=== PATIENT | female | born 1955 | race African-American/Black ===

== ENCOUNTER 2019-01-01 06:55 | Emergency (ER) | payer MEDICARE, MEDICAID ==
[~2019-01-01] VITALS: Ht 177.8 cm; Wt 88.0 kg
[2019-01-01] MEDS ORDERED: ONDANSETRON 4MG ODT PO ONE (10:30)
[2019-01-01] MEDS ORDERED: HYDROCODONE/ACETAMINOPHEN 5/325MG TABLET PO ONE (10:30)
[2019-01-01 10:45] VITALS: BP 153/103
== END 2019-01-01 12:19 | disposition home or self-care (01) ==
LOC: ER 06:55
DX: M25.562 Pain in left knee (principal); M25.561 Pain in right knee; G89.29 Other chronic pain; I10 Essential (primary) hypertension; M19.90 Unspecified osteoarthritis, unspecified site; I48.91 Unspecified atrial fibrillation; Z95.0 Presence of cardiac pacemaker; Z79.01 Long term (current) use of anticoagulants
CPT/HCPCS: 72170; 73562; 99283; Q0162

== ENCOUNTER 2019-02-03 03:39 | Inpatient (IN) | payer MEDICARE, MEDICAID ==
[~2019-02-03] VITALS: Ht 175.3 cm; Wt 91.2 kg
[2019-02-03] VITALS (10 sets, daily range): BP systolic 124–158; BP diastolic 63–104
[2019-02-03] MEDS ORDERED: ONDANSETRON HCL 4MG/2ML INJ IV STA (04:04)
[2019-02-03] MEDS ORDERED: MORPHINE SULFATE 4 MG/ML CPJ (NOT FOR IM USE) IV STA (04:04)
[2019-02-03 04:24] LABS: BASOPHILS % 0.6 % (0.0-2.0); EOSINOPHILS % 3.8 % (0.0-5.0); HEMATOCRIT. 29.4 % (36.0-48.0); HEMOGLOBIN. 9.7 g/dL (12.0-16.0); LYMPHOCYTES % 9.8 % (20.0-50.0); MEAN CORPUSCULAR HEMOGLOBIN 28.7 pg (28.0-32.0); MEAN CORPUSCULAR VOLUME 87.1 fL (81.0-99.0); MEAN PLATELET VOLUME 7.3 fl (7.4-10.4); MONOCYTES % 7.3 % (2.0-8.0); NEUTROPHILS % 78.5 % (40.0-76.0); PLATELET 320 x1000/uL (130-400); RED BLOOD CELL COUNT 3.38 mill/uL (4.2-5.4)
[2019-02-03 04:26] LABS: CHLORIDE 102 mEq/L (98-107)
[2019-02-03 04:31] LABS: D-DIMER 1.4 mg/L FEU (<0.50); INR 1.2; PROTHROMBIN TIME 12.7 sec (9.6-11.0)
[2019-02-03] MEDS ORDERED: ENOXAPARIN 100MG/ML SYR SUBCUT ONE (05:00)
[2019-02-03] MEDS ORDERED: ACETAMINOPHEN 325MG TABLET PO PRN (07:30)
[2019-02-03] MEDS ORDERED: CLONIDINE 0.1MG TABLET PO PRN (07:30)
[2019-02-03] MEDS ORDERED: IPRATROPIUM/ALBUTEROL 0.5-3(2.5)MG/3ML NEB INH PRN (07:30)
[2019-02-03] MEDS ORDERED: ONDANSETRON HCL 4MG/2ML INJ IV PRN (07:30)
[2019-02-03] MEDS ORDERED: LORAZEPAM 0.5MG TABLET PO PRN (07:30)
[2019-02-03] MEDS ORDERED: DOCUSATE SODIUM 100MG CAPSULE PO PRN (07:30)
[2019-02-03] MEDS: ASPIRIN 81MG EC TABLET PO SCH (08:35)
[2019-02-03] MEDS: HYDROCODONE/ACETAMINOPHEN 5/325MG TABLET PO PRN ×2 (08:35→20:40)
[2019-02-03 10:40] LABS: BASOPHILS % 0.7 % (0.0-2.0); EOSINOPHILS % 5.4 % (0.0-5.0); HEMOGLOBIN. 9.2 g/dL (12.0-16.0); LYMPHOCYTES % 9.9 % (20.0-50.0); MEAN CORPUSCULAR HEMOGLOBIN 27.8 pg (28.0-32.0); MEAN CORPUSCULAR VOLUME 87.4 fL (81.0-99.0); MEAN PLATELET VOLUME 7.6 fl (7.4-10.4); MONOCYTES % 7.9 % (2.0-8.0); NEUTROPHILS % 76.1 % (40.0-76.0); PLATELET 330 x1000/uL (130-400); RED BLOOD CELL COUNT 3.32 mill/uL (4.2-5.4); RED CELL DISTRIBUTION WIDTH 17.1 % (11.6-14.6)
[2019-02-03 10:41] LABS: CHLORIDE 102 mEq/L (98-107)
[2019-02-03 10:48] LABS: LDL CHOLESTEROL 48 mg/dL (5-100)
[2019-02-03 10:49] LABS: HDL CHOLESTEROL 24 mg/dL (40-59); TOTAL IRON BINDING CAPACITY 167 ug/dL (250-450)
[2019-02-03 10:52] LABS: CREATINE KINASE MB FRACTION 56.4 ng/mL (0.5-3.6)
[2019-02-03 11:04] LABS: CREATINE KINASE 3938 IU/L (26-192)
[2019-02-03] MEDS ORDERED: FUROSEMIDE 40MG/4ML VIAL IVP NR (12:30)
[2019-02-03] MEDS ORDERED: POTASSIUM CHLORIDE 20MEQ TABLET SR PO NR ×2 (12:30→19:00)
[2019-02-03] MEDS: MORPHINE SULFATE 2 MG/ML CPJ (NOT FOR IM USE) IV PRN ×3 (12:54→23:16)
[2019-02-03 13:01] LABS: *BARBITURATES SCREEN URINE NEGATIVE (NEGATIVE); *BENZODIAZEPINES SCREEN URINE NEGATIVE (NEGATIVE); *COCAINE SCREEN URINE NEGATIVE (NEGATIVE); METHADONE URINE SCREEN NEGATIVE (NEGATIVE)
[2019-02-03 13:02] LABS: *AMPHETAMINES SCREEN URINE NEGATIVE (NEGATIVE); CANNABINOID URINE SCREEN NEGATIVE (NEGATIVE); OPIATES URINE SCREEN PRESUMTIVE POSITIVE (NEGATIVE); PHENCYCLIDINE URINE SCREEN NEGATIVE (NEGATIVE)
[2019-02-03] MEDS ORDERED: MAGNESIUM 4 G PREMIX 100 ML IV NR (14:30)
[2019-02-03] MEDS ORDERED: IOHEXOL-350 100 ML BOTTLE ONE (14:54)
[2019-02-03] MEDS: DILTIAZEM HCL 60MG TABLET PO SCH (18:14)
[2019-02-03 18:23] LABS: HEPATITIS B SURFACE ANTIGEN NEGATIVE
[2019-02-03 18:53] LABS: HEPATITIS A AB IGM NEGATIVE (NEGATIVE)
[2019-02-03 20:26] LABS: CREATINE KINASE MB FRACTION 48.2 ng/mL (0.5-3.6)
[2019-02-03] MEDS: ENOXAPARIN 80MG/0.8ML SYR SUBCUT SCH (20:32)
[2019-02-04] VITALS (11 sets, daily range): BP systolic 109–147; BP diastolic 62–91
[2019-02-04] MEDS: DILTIAZEM HCL 60MG TABLET PO SCH ×4 (00:04→17:25)
[2019-02-04] MEDS: MORPHINE SULFATE 2 MG/ML CPJ (NOT FOR IM USE) IV PRN ×2 (03:24→20:56)
[2019-02-04] MEDS: HYDROCODONE/ACETAMINOPHEN 5/325MG TABLET PO PRN ×2 (06:12→13:04)
[2019-02-04 07:17] LABS: BASOPHILS % 0.7 % (0.0-2.0); EOSINOPHILS % 4.6 % (0.0-5.0); HEMATOCRIT. 29.6 % (36.0-48.0); HEMOGLOBIN. 9.4 g/dL (12.0-16.0); LYMPHOCYTES % 8.3 % (20.0-50.0); MEAN CORPUSCULAR HEMOGLOBIN 27.8 pg (28.0-32.0); MEAN CORPUSCULAR VOLUME 87.4 fL (81.0-99.0); MEAN PLATELET VOLUME 7.6 fl (7.4-10.4); MONOCYTES % 8.4 % (2.0-8.0); PLATELET 350 x1000/uL (130-400); RED BLOOD CELL COUNT 3.38 mill/uL (4.2-5.4); RED CELL DISTRIBUTION WIDTH 17.2 % (11.6-14.6)
[2019-02-04 07:35] LABS: CHLORIDE 102 mEq/L (98-107)
[2019-02-04] MEDS: ASPIRIN 81MG EC TABLET PO SCH ×2 (08:20→08:23)
[2019-02-04] MEDS: ENOXAPARIN 80MG/0.8ML SYR SUBCUT SCH ×2 (08:20→21:15)
[2019-02-04] MEDS ORDERED: REGADENOSON 0.4 MG/5 ML IV NR (11:30)
[2019-02-04] MEDS ORDERED: REGADENOSON 0.4 MG/5 ML IV ONE (12:15)
[2019-02-05] VITALS (11 sets, daily range): BP systolic 108–147; BP diastolic 64–84
[2019-02-05] MEDS: DILTIAZEM HCL 60MG TABLET PO SCH ×4 (00:26→21:51)
[2019-02-05] MEDS: MORPHINE SULFATE 2 MG/ML CPJ (NOT FOR IM USE) IV PRN ×3 (00:29→16:37)
[2019-02-05] MEDS: HYDROCODONE/ACETAMINOPHEN 5/325MG TABLET PO PRN ×2 (03:55→13:21)
[2019-02-05 08:08] LABS: EOSINOPHILS % 3.9 % (0.0-5.0); HEMATOCRIT. 30.7 % (36.0-48.0); HEMOGLOBIN. 9.9 g/dL (12.0-16.0); LYMPHOCYTES % 7.3 % (20.0-50.0); MEAN CORPUSCULAR VOLUME 87.2 fL (81.0-99.0); MEAN PLATELET VOLUME 7.9 fl (7.4-10.4); MONOCYTES % 8.1 % (2.0-8.0); NEUTROPHILS % 79.7 % (40.0-76.0); PLATELET 365 x1000/uL (130-400); RED BLOOD CELL COUNT 3.52 mill/uL (4.2-5.4); RED CELL DISTRIBUTION WIDTH 17.1 % (11.6-14.6)
[2019-02-05 08:33] LABS: CHLORIDE 100 mEq/L (98-107)
[2019-02-05] MEDS: FUROSEMIDE 40MG/4ML VIAL IVP SCH ×2 (08:55→16:36)
[2019-02-05] MEDS: ASPIRIN 81MG EC TABLET PO SCH (08:55)
[2019-02-05] MEDS: ENOXAPARIN 80MG/0.8ML SYR SUBCUT SCH ×2 (09:02→21:52)
[2019-02-05] MEDS ORDERED: WARFARIN SODIUM 2.5MG TABLET PO SCH (18:00)
[2019-02-06] VITALS (9 sets, daily range): BP systolic 126–143; BP diastolic 65–87
[2019-02-06] MEDS: MORPHINE SULFATE 2 MG/ML CPJ (NOT FOR IM USE) IV PRN (00:01)
[2019-02-06] MEDS: HYDROCODONE/ACETAMINOPHEN 5/325MG TABLET PO PRN ×2 (03:42→09:13)
[2019-02-06] MEDS: DILTIAZEM HCL 60MG TABLET PO SCH ×2 (05:35→14:41)
[2019-02-06] MEDS: FUROSEMIDE 40MG/4ML VIAL IVP SCH (06:23)
[2019-02-06 06:46] LABS: BASOPHILS % 0.7 % (0.0-2.0); EOSINOPHILS % 5.2 % (0.0-5.0); HEMATOCRIT. 28.4 % (36.0-48.0); HEMOGLOBIN. 9.4 g/dL (12.0-16.0); LYMPHOCYTES % 10.2 % (20.0-50.0); MEAN CORPUSCULAR HEMOGLOBIN 28.7 pg (28.0-32.0); MEAN PLATELET VOLUME 7.9 fl (7.4-10.4); MONOCYTES % 9.5 % (2.0-8.0); NEUTROPHILS % 74.4 % (40.0-76.0); PLATELET 326 x1000/uL (130-400); RED BLOOD CELL COUNT 3.27 mill/uL (4.2-5.4); RED CELL DISTRIBUTION WIDTH 16.8 % (11.6-14.6)
[2019-02-06] MEDS: ASPIRIN 81MG EC TABLET PO SCH (08:58)
[2019-02-06] MEDS: ENOXAPARIN 80MG/0.8ML SYR SUBCUT SCH (10:31)
[2019-02-06] MEDS ORDERED: FUROSEMIDE 40MG TABLET PO SCH (17:15)
== END 2019-02-06 15:22 | disposition home or self-care (01) | DRG 280 ==
LOC: ER 03:39 → 3WST 04:56 → ENRESERV 05:24
PROVIDERS: ADMIT Internal Medicine; ATTEND Internal Medicine
DX: I21.4 Non-ST elevation (NSTEMI) myocardial infarction (principal); I50.43 Acute on chronic combined systolic (congestive) and diastolic (congestive) heart failure; I48.1 Persistent atrial fibrillation; I31.3 Pericardial effusion (noninflammatory); D50.9 Iron deficiency anemia, unspecified; D63.8 Anemia in other chronic diseases classified elsewhere; E83.42 Hypomagnesemia; E87.6 Hypokalemia; I11.0 Hypertensive heart disease with heart failure; I49.5 Sick sinus syndrome; M19.90 Unspecified osteoarthritis, unspecified site; I34.0 Nonrheumatic mitral (valve) insufficiency; I48.2 Chronic atrial fibrillation; R74.0 Nonspecific elevation of levels of transaminase and lactic acid dehydrogenase [LDH]; R79.1 Abnormal coagulation profile; Z79.01 Long term (current) use of anticoagulants; Z95.0 Presence of cardiac pacemaker; Z79.899 Other long term (current) drug therapy; Z91.19 Patient's noncompliance with other medical treatment and regimen
CPT/HCPCS: 36415; 71045; 71275; 76700; 78452; 80048; 80061; 80305; 82550; 82553; 82728; 83036; 83540; 83550; 83605; 83735; 83880; 84443; 84484; 85379; 86705; 86709; 86803; 87340; 93005; 93017; 93306; 93970; 96372; 96374; 96375; 99285; A9500; J1650; J1940; J2270; J2405; J2785; J3475; Q9967

== ENCOUNTER 2019-04-01 05:55 | Inpatient (IN) | payer MEDICARE, MEDICAID ==
[~2019-04-01] VITALS: Ht 177.8 cm; Wt 77.1 kg
[2019-04-01] MEDS ORDERED: ONDANSETRON HCL 4MG/2ML INJ IV STA (06:25)
[2019-04-01] MEDS ORDERED: MORPHINE SULFATE 4 MG/ML CPJ (NOT FOR IM USE) IV STA (06:25)
[2019-04-01] MEDS ORDERED: SODIUM CHLORIDE 0.9% 1,000 ML IV ONE (06:25)
[2019-04-01 06:50] LABS: HEMATOCRIT. 29.1 % (36.0-48.0); HEMOGLOBIN. 9.4 g/dL (12.0-16.0); MEAN CORPUSCULAR HEMOGLOBIN 27.9 pg (28.0-32.0); MEAN CORPUSCULAR VOLUME 86.1 fL (81.0-99.0); MEAN PLATELET VOLUME 7.6 fl (7.4-10.4); PLATELET 315 x1000/uL (130-400); RED BLOOD CELL COUNT 3.38 mill/uL (4.2-5.4); RED CELL DISTRIBUTION WIDTH 17.2 % (11.6-14.6)
[2019-04-01 06:55] LABS: CHLORIDE 97 mEq/L (98-107)
[2019-04-01 07:28] LABS: PLATELET ESTIMATE NORMAL
[2019-04-01] MEDS ORDERED: LEVOFLOXACIN 750MG PREMIX 150 ML IV ONE (07:30)
[2019-04-01] MEDS ORDERED: SODIUM CHLORIDE 0.9% 1000ML BAG (SEPSIS BOLUS) IV ONE (07:30)
[2019-04-01] MEDS ORDERED: CLONIDINE 0.1MG TABLET PO ONE (07:45)
[2019-04-01] MEDS ORDERED: POTASSIUM CHLORIDE 20MEQ TABLET SR PO ONE (07:45)
[2019-04-01] MEDS ORDERED: ASPIRIN 81MG TABLET PO ONE (07:45)
[2019-04-01 08:00] VITALS: BP 159/94
[2019-04-01 09:00] VITALS: BP 159/94
[2019-04-01 09:50] LABS: CLARITY URINE CLEAR (CLEAR); COLOR URINE YELLOW (YELLOW); KETONES URINE NEGATIVE (NEGATIVE); LEUKOCYTE ESTERASE URINE NEGATIVE (NEGATIVE); NITRITE URINE NEGATIVE (NEGATIVE); OCCULT BLOOD URINE NEGATIVE (NEGATIVE); PROTEIN URINE NEGATIVE (NEGATIVE); SPECIFIC GRAVITY URINE 1.014 (1.005-1.030); UROBILINOGEN URINE 0.2 E.U./dL (0.2-1.0)
[2019-04-01] MEDS ORDERED: LORAZEPAM 0.5MG TABLET PO PRN (11:30)
[2019-04-01] MEDS ORDERED: ACETAMINOPHEN 325MG TABLET PO PRN (11:30)
[2019-04-01] MEDS ORDERED: IPRATROPIUM/ALBUTEROL 0.5-3(2.5)MG/3ML NEB INH PRN (11:30)
[2019-04-01] MEDS ORDERED: DOCUSATE SODIUM 100MG CAPSULE PO PRN (11:30)
[2019-04-01] MEDS ORDERED: CLONIDINE 0.1MG TABLET PO PRN (11:30)
[2019-04-01 12:00] VITALS: BP 158/85
[2019-04-01 12:34] LABS: CREATINE KINASE MB FRACTION 23.6 ng/mL (0.5-3.6)
[2019-04-01] MEDS: PANTOPRAZOLE 40MG DR TABLET PO SCH (12:41)
[2019-04-01] MEDS: HYDROCODONE/ACETAMINOPHEN 5/325MG TABLET PO PRN ×3 (12:43→22:17)
[2019-04-01 13:29] LABS: *AMPHETAMINES SCREEN URINE NEGATIVE (NEGATIVE); *BARBITURATES SCREEN URINE NEGATIVE (NEGATIVE)
[2019-04-01 13:30] LABS: *BENZODIAZEPINES SCREEN URINE NEGATIVE (NEGATIVE); *COCAINE SCREEN URINE NEGATIVE (NEGATIVE); CANNABINOID URINE SCREEN NEGATIVE (NEGATIVE); METHADONE URINE SCREEN NEGATIVE (NEGATIVE); OPIATES URINE SCREEN NEGATIVE (NEGATIVE); PHENCYCLIDINE URINE SCREEN NEGATIVE (NEGATIVE)
[2019-04-01 13:54] VITALS: BP 158/85
[2019-04-01] MEDS: LOSARTAN POTASSIUM 25 MG TABLET PO SCH (15:00)
[2019-04-01] MEDS: DILTIAZEM HCL 60MG TABLET PO SCH ×2 (15:00→22:17)
[2019-04-01 16:00] VITALS: BP 160/100
[2019-04-01] MEDS: ONDANSETRON HCL 4MG/2ML INJ IV PRN (19:33)
[2019-04-01 20:00] VITALS: BP 130/85
[2019-04-01 20:34] LABS: INR 1.2; PROTHROMBIN TIME 12.4 sec (9.6-11.0)
[2019-04-01] MEDS ORDERED: WARFARIN SODIUM 5MG TABLET PO SCH (21:00)
[2019-04-02] VITALS: BP 156/100
[2019-04-02] MEDS: ONDANSETRON HCL 4MG/2ML INJ IV PRN (00:28)
[2019-04-02 04:00] VITALS: BP 126/60
[2019-04-02] MEDS: HYDROCODONE/ACETAMINOPHEN 5/325MG TABLET PO PRN ×3 (06:00→21:11)
[2019-04-02] MEDS: PANTOPRAZOLE 40MG DR TABLET PO SCH (06:27)
[2019-04-02] MEDS: DILTIAZEM HCL 60MG TABLET PO SCH ×3 (06:28→21:10)
[2019-04-02 07:03] LABS: INR 1.1; PROTHROMBIN TIME 11.7 sec (9.6-11.0)
[2019-04-02 07:18] LABS: HEMATOCRIT. 29.2 % (36.0-48.0); HEMOGLOBIN. 9.6 g/dL (12.0-16.0); MEAN CORPUSCULAR HEMOGLOBIN 27.9 pg (28.0-32.0); MEAN CORPUSCULAR VOLUME 85.4 fL (81.0-99.0); MEAN PLATELET VOLUME 7.8 fl (7.4-10.4); PLATELET 313 x1000/uL (130-400); RED BLOOD CELL COUNT 3.42 mill/uL (4.2-5.4); RED CELL DISTRIBUTION WIDTH 16.9 % (11.6-14.6)
[2019-04-02 07:21] LABS: CHLORIDE 102 mEq/L (98-107)
[2019-04-02 07:37] LABS: PHOSPHORUS 3.8 mg/dL (2.5-4.9)
[2019-04-02 08:00] VITALS: BP 139/68
[2019-04-02] MEDS: LOSARTAN POTASSIUM 25 MG TABLET PO SCH (08:40)
[2019-04-02] MEDS ORDERED: ONDANSETRON HCL 4MG/2ML INJ IV PRN (09:00)
[2019-04-02 12:00] VITALS: BP 126/67
[2019-04-02] MEDS: ENOXAPARIN 80MG/0.8ML SYR SUBCUT SCH ×2 (12:27→21:11)
[2019-04-02] MEDS ORDERED: POTASSIUM CHLORIDE 20MEQ TABLET SR PO NR (12:30)
[2019-04-02 14:05] LABS: PLATELET ESTIMATE NORMAL
[2019-04-02 15:51] VITALS: BP 151/79
[2019-04-02 16:55] LABS: CREATINE KINASE 1634 IU/L (26-192)
[2019-04-02] MEDS ORDERED: WARFARIN SODIUM 7.5MG TABLET PO NR (18:00)
[2019-04-02 20:00] VITALS: BP 130/80
[2019-04-03] VITALS: BP 120/70
[2019-04-03] MEDS: HYDROCODONE/ACETAMINOPHEN 5/325MG TABLET PO PRN ×2 (01:35→08:08)
[2019-04-03 04:00] VITALS: BP 140/80
[2019-04-03] MEDS: DILTIAZEM HCL 60MG TABLET PO SCH ×2 (05:45→13:50)
[2019-04-03 07:05] LABS: BASOPHILS % 1.1 % (0.0-2.0); EOSINOPHILS % 5.2 % (0.0-5.0); HEMATOCRIT. 31.8 % (36.0-48.0); HEMOGLOBIN. 10.3 g/dL (12.0-16.0); LYMPHOCYTES % 17.9 % (20.0-50.0); MEAN CORPUSCULAR VOLUME 85.9 fL (81.0-99.0); MEAN PLATELET VOLUME 7.9 fl (7.4-10.4); MONOCYTES % 6.9 % (2.0-8.0); NEUTROPHILS % 68.9 % (40.0-76.0); PLATELET 337 x1000/uL (130-400); RED CELL DISTRIBUTION WIDTH 17.2 % (11.6-14.6)
[2019-04-03 07:12] LABS: CHLORIDE 100 mEq/L (98-107)
[2019-04-03 07:21] LABS: INR 1.2
[2019-04-03 07:28] LABS: PHOSPHORUS 3.2 mg/dL (2.5-4.9)
[2019-04-03 07:44] LABS: CREATINE KINASE 1774 IU/L (26-192)
[2019-04-03 07:48] VITALS: BP 142/81
[2019-04-03] MEDS: LOSARTAN POTASSIUM 25 MG TABLET PO SCH (08:08)
[2019-04-03] MEDS: ENOXAPARIN 80MG/0.8ML SYR SUBCUT SCH (08:08)
[2019-04-03] MEDS ORDERED: FAMOTIDINE 20MG TABLET PO SCH (09:00)
[2019-04-03 12:00] VITALS: BP 127/80
[2019-04-03 13:52] VITALS: BP 127/80
[2019-04-03] MEDS ORDERED: WARFARIN SODIUM 7.5MG TABLET PO NR (18:00)
== END 2019-04-03 14:35 | disposition home health service (06) | DRG 683 ==
LOC: ER 05:55 → 5WST 07:40 → EDBEDREQ 08:14 → ENRESERV 08:25
PROVIDERS: ADMIT Internal Medicine; ATTEND Internal Medicine
DX: N17.9 Acute kidney failure, unspecified (principal); E44.1 Mild protein-calorie malnutrition; I31.3 Pericardial effusion (noninflammatory); M62.82 Rhabdomyolysis; I50.22 Chronic systolic (congestive) heart failure; I42.0 Dilated cardiomyopathy; E87.6 Hypokalemia; I11.0 Hypertensive heart disease with heart failure; I48.2 Chronic atrial fibrillation; R10.9 Unspecified abdominal pain; R20.2 Paresthesia of skin; D63.8 Anemia in other chronic diseases classified elsewhere; I08.1 Rheumatic disorders of both mitral and tricuspid valves; R74.0 Nonspecific elevation of levels of transaminase and lactic acid dehydrogenase [LDH]; I49.5 Sick sinus syndrome; M19.90 Unspecified osteoarthritis, unspecified site; Z79.01 Long term (current) use of anticoagulants; I25.2 Old myocardial infarction; Z82.49 Family history of ischemic heart disease and other diseases of the circulatory system; Z95.0 Presence of cardiac pacemaker; Z68.24 Body mass index [BMI] 24.0-24.9, adult
CPT/HCPCS: 36415; 71045; 74176; 80048; 80076; 80305; 81003; 82550; 82553; 83605; 83735; 83880; 84100; 84484; 93005; 93306; 96365; 96375; 99285; J1650; J1956; J2270; J2405; J7030

== ENCOUNTER 2019-05-28 06:21 | Inpatient (IN) | payer MEDICARE, MEDICAID ==
[~2019-05-28] VITALS: Ht 177.8 cm; Wt 93.0 kg
[2019-05-28] MEDS ORDERED: ONDANSETRON HCL 4MG/2ML INJ IV STA (06:40)
[2019-05-28] MEDS ORDERED: MORPHINE SULFATE 4 MG/ML CPJ (NOT FOR IM USE) IV STA (06:40)
[2019-05-28] MEDS ORDERED: SODIUM CHLORIDE 0.9% 1,000 ML IV ONE (06:40)
[2019-05-28 08:22] LABS: BASOPHILS % 0.3 % (0.0-2.0); EOSINOPHILS % 2.8 % (0.0-5.0); HEMATOCRIT. 29.4 % (36.0-48.0); HEMOGLOBIN. 9.3 g/dL (12.0-16.0); LYMPHOCYTES % 15.2 % (20.0-50.0); MEAN CORPUSCULAR HEMOGLOBIN 27.2 pg (28.0-32.0); MEAN CORPUSCULAR VOLUME 85.8 fL (81.0-99.0); MEAN PLATELET VOLUME 7.5 fl (7.4-10.4); MONOCYTES % 9.4 % (2.0-8.0); NEUTROPHILS % 72.3 % (40.0-76.0); PLATELET 238 x1000/uL (130-400); RED BLOOD CELL COUNT 3.43 mill/uL (4.2-5.4); RED CELL DISTRIBUTION WIDTH 18.1 % (11.6-14.6)
[2019-05-28 08:29] LABS: CHLORIDE 110 mEq/L (98-107)
[2019-05-28] MEDS ORDERED: NITROGLYCERIN OINT 1GM/INCH UDPKT TD ONE (08:30)
[2019-05-28] MEDS ORDERED: FUROSEMIDE 40MG/4ML VIAL IV ONE (08:30)
[2019-05-28] MEDS ORDERED: ASPIRIN 81MG TABLET PO ONE (08:30)
[2019-05-28 08:32] LABS: INR 1.1; PARTIAL THROMBOPLASTIN TIME 31.8 sec (23.4-31.0); PROTHROMBIN TIME 10.8 sec (9.6-11.0)
[2019-05-28 09:48] LABS: CLARITY URINE CLEAR (CLEAR); COLOR URINE YELLOW (YELLOW); KETONES URINE NEGATIVE (NEGATIVE); LEUKOCYTE ESTERASE URINE TRACE (NEGATIVE); NITRITE URINE NEGATIVE (NEGATIVE); OCCULT BLOOD URINE NEGATIVE (NEGATIVE); PH URINE 5.5 (4.5-8.0); PROTEIN URINE NEGATIVE (NEGATIVE); SPECIFIC GRAVITY URINE 1.015 (1.005-1.030); UROBILINOGEN URINE 0.2 E.U./dL (0.2-1.0)
[2019-05-28] MEDS ORDERED: HYDROCODONE/ACETAMINOPHEN 5/325MG TABLET PO PRN (12:00)
[2019-05-28] MEDS ORDERED: ACETAMINOPHEN 325MG TABLET PO PRN (12:00)
[2019-05-28] MEDS ORDERED: CLONIDINE 0.1MG TABLET PO PRN (12:00)
[2019-05-28] MEDS: MORPHINE SULFATE 2 MG/ML CPJ (NOT FOR IM USE) IV PRN ×2 (12:17→19:44)
[2019-05-28 15:05] VITALS: BP 180/100
[2019-05-28] MEDS ORDERED: LOSARTAN POTASSIUM 50 MG TABLET PO SCH (16:00)
[2019-05-28] MEDS ORDERED: FUROSEMIDE 40MG/4ML VIAL IVP NR (16:00)
[2019-05-28 16:17] VITALS: BP 177/106
[2019-05-28] MEDS: ENOXAPARIN 100MG/ML SYR SUBCUT SCH (16:56)
[2019-05-28 19:42] VITALS: BP 155/93
[2019-05-28] MEDS: AMLODIPINE 5MG TABLET PO SCH (19:43)
[2019-05-28] MEDS: LOSARTAN POTASSIUM 50 MG TABLET PO SCH (22:00)
[2019-05-28] MEDS: HYDRALAZINE HCL 50MG TABLET PO SCH (22:00)
[2019-05-29] VITALS: BP 139/90
[2019-05-29] MEDS: MORPHINE SULFATE 2 MG/ML CPJ (NOT FOR IM USE) IV PRN ×2 (03:06→10:43)
[2019-05-29] MEDS: ENOXAPARIN 100MG/ML SYR SUBCUT SCH (03:45)
[2019-05-29 04:00] VITALS: BP 135/86
[2019-05-29 07:53] VITALS: BP 128/70
[2019-05-29 08:01] LABS: BASOPHILS % 0.3 % (0.0-2.0); EOSINOPHILS % 1.4 % (0.0-5.0); HEMATOCRIT. 30.3 % (36.0-48.0); HEMOGLOBIN. 9.8 g/dL (12.0-16.0); LYMPHOCYTES % 18.8 % (20.0-50.0); MEAN CORPUSCULAR VOLUME 83.7 fL (81.0-99.0); MEAN PLATELET VOLUME 7.9 fl (7.4-10.4); MONOCYTES % 11.6 % (2.0-8.0); NEUTROPHILS % 67.9 % (40.0-76.0); PLATELET 258 x1000/uL (130-400); RED BLOOD CELL COUNT 3.62 mill/uL (4.2-5.4); RED CELL DISTRIBUTION WIDTH 18.1 % (11.6-14.6)
[2019-05-29] MEDS: LOSARTAN POTASSIUM 50 MG TABLET PO SCH (08:35)
[2019-05-29] MEDS: AMLODIPINE 5MG TABLET PO SCH (08:35)
[2019-05-29] MEDS: HYDRALAZINE HCL 50MG TABLET PO SCH (08:35)
[2019-05-29] MEDS ORDERED: FUROSEMIDE 40MG/4ML VIAL IVP SCH (09:00)
[2019-05-29 09:16] LABS: CHLORIDE 104 mEq/L (98-107)
[2019-05-29 10:53] VITALS: BP 111/52
[2019-05-29 11:45] VITALS: BP 111/52
[2019-06-12] MEDS ORDERED: DIGO125T82 PO (12:29)
[2019-06-12] MEDS ORDERED: ASPI-1393 PO (12:29)
[2019-06-12] MEDS ORDERED: TORS100T11 PO (20:50)
[2019-06-13] MEDS ORDERED: ASPI-1393 PO (13:15)
== END 2019-05-29 14:12 | disposition home or self-care (01) | DRG 553 ==
LOC: ER 06:21 → 7WST 11:15 → EDBEDREQ 11:34 → ENRESERV 12:36
PROVIDERS: ADMIT Internal Medicine; ATTEND Internal Medicine
DX: M17.12 Unilateral primary osteoarthritis, left knee (principal); I50.33 Acute on chronic diastolic (congestive) heart failure; E44.1 Mild protein-calorie malnutrition; I48.20 Chronic atrial fibrillation, unspecified; D64.9 Anemia, unspecified; E87.8 Other disorders of electrolyte and fluid balance, not elsewhere classified; I11.0 Hypertensive heart disease with heart failure; M10.9 Gout, unspecified; Z90.49 Acquired absence of other specified parts of digestive tract; Z68.29 Body mass index [BMI] 29.0-29.9, adult; Z95.0 Presence of cardiac pacemaker
CPT/HCPCS: 36415; 71045; 73562; 74176; 80048; 81003; 83880; 84484; 84550; 93005; 93970; 99285; J1650; J1940; J2270; J2405; J7030

== ENCOUNTER 2019-06-12 02:58 | Inpatient (IN) | payer MEDICARE, MEDICAID ==
[~2019-06-12] VITALS: Ht 177.8 cm; Wt 93.0 kg
[2019-06-12] MEDS ORDERED: HYDROCODONE/ACETAMINOPHEN 5/325MG TABLET PO ONE (05:45)
[2019-06-12] MEDS ORDERED: SODIUM CHLORIDE 0.9% 1,000 ML IV ONE (08:21)
[2019-06-12 08:47] LABS: BASOPHILS % 0.9 % (0.0-2.0); HEMATOCRIT. 30.4 % (36.0-48.0); HEMOGLOBIN. 9.8 g/dL (12.0-16.0); LYMPHOCYTES % 15.5 % (20.0-50.0); MEAN CORPUSCULAR HEMOGLOBIN 27.1 pg (28.0-32.0); MEAN CORPUSCULAR VOLUME 84.1 fL (81.0-99.0); MEAN PLATELET VOLUME 7.2 fl (7.4-10.4); NEUTROPHILS % 68.6 % (40.0-76.0); PLATELET 336 x1000/uL (130-400); RED BLOOD CELL COUNT 3.61 mill/uL (4.2-5.4); RED CELL DISTRIBUTION WIDTH 18.3 % (11.6-14.6)
[2019-06-12 08:52] LABS: CHLORIDE 104 mEq/L (98-107)
[2019-06-12 09:44] LABS: CLARITY URINE CLEAR (CLEAR); COLOR URINE YELLOW (YELLOW); KETONES URINE NEGATIVE (NEGATIVE); LEUKOCYTE ESTERASE URINE NEGATIVE (NEGATIVE); NITRITE URINE NEGATIVE (NEGATIVE); OCCULT BLOOD URINE NEGATIVE (NEGATIVE); PH URINE 5.5 (4.5-8.0); PROTEIN URINE NEGATIVE (NEGATIVE); SPECIFIC GRAVITY URINE 1.007 (1.005-1.030); UROBILINOGEN URINE 0.2 E.U./dL (0.2-1.0)
[2019-06-12] MEDS ORDERED: MORPHINE SULFATE 4 MG/ML CPJ (NOT FOR IM USE) IV ONE (10:00)
[2019-06-12] MEDS ORDERED: ONDANSETRON HCL 4MG/2ML INJ IV ONE (10:00)
[2019-06-12] MEDS ORDERED: FUROSEMIDE 20MG/2ML VIAL IVP ONE (10:00)
[2019-06-12] MEDS ORDERED: ONDANSETRON HCL 4MG/2ML INJ IV PRN (10:45)
[2019-06-12] MEDS ORDERED: ACETAMINOPHEN 325MG TABLET PO PRN (10:45)
[2019-06-12 12:00] VITALS: BP 155/81
[2019-06-12 12:21] VITALS: BP 155/81
[2019-06-12] MEDS ORDERED: FURO20TA4 PO (12:28)
[2019-06-12] MEDS ORDERED: ASPI-1497 PO (12:29)
[2019-06-12] MEDS ORDERED: DIGO125T80 PO (12:29)
[2019-06-12] MEDS: FUROSEMIDE 20MG TABLET PO SCH (14:30)
[2019-06-12] MEDS: ASPIRIN 81MG EC TABLET PO SCH (14:36)
[2019-06-12] MEDS: HYDROCODONE/ACETAMINOPHEN 5/325MG TABLET PO PRN ×2 (15:09→21:06)
[2019-06-12 15:58] VITALS: BP 103/55
[2019-06-12] MEDS: APIXABAN 5 MG TABLET PO SCH (16:56)
[2019-06-12] MEDS ORDERED: APIX5TAB MT (17:08)
[2019-06-12 20:00] VITALS: BP 120/62
[2019-06-12] MEDS ORDERED: DOXE10CA2 PO (20:50)
[2019-06-12] MEDS ORDERED: TORS100T16 PO (20:50)
[2019-06-12] MEDS ORDERED: LEVO25TA2 PO ×2 (20:50→20:53)
[2019-06-12] MEDS ORDERED: ISOS30TA6 PO (20:50)
[2019-06-12] MEDS ORDERED: DILT180T11 PO (20:50)
[2019-06-12] MEDS ORDERED: NITR0.4T49 SL (20:50)
[2019-06-12] MEDS ORDERED: ALD50 PO (20:50)
[2019-06-12] MEDS ORDERED: LACT10SO30 PO (20:50)
[2019-06-12] MEDS ORDERED: METO100T16 PO (20:50)
[2019-06-12] MEDS ORDERED: DICL100G31 TP (20:50)
[2019-06-12] MEDS ORDERED: LISI-653 PO (20:50)
[2019-06-12] MEDS ORDERED: ATOR20TA65 PO (20:51)
[2019-06-12] MEDS ORDERED: AMI2 PO (20:51)
[2019-06-13] VITALS: BP_SYST 106; BP_SYST 92; BP_DIAS 57; BP_DIAS 66
[2019-06-13] MEDS: HYDROCODONE/ACETAMINOPHEN 5/325MG TABLET PO PRN ×4 (03:04→20:12)
[2019-06-13 04:00] VITALS: BP 119/69
[2019-06-13 07:18] LABS: BASOPHILS % 0.5 % (0.0-2.0); EOSINOPHILS % 3.7 % (0.0-5.0); HEMATOCRIT. 30.9 % (36.0-48.0); HEMOGLOBIN. 9.8 g/dL (12.0-16.0); LYMPHOCYTES % 22.9 % (20.0-50.0); MEAN CORPUSCULAR HEMOGLOBIN 26.7 pg (28.0-32.0); MEAN CORPUSCULAR VOLUME 84.6 fL (81.0-99.0); MEAN PLATELET VOLUME 7.2 fl (7.4-10.4); MONOCYTES % 12.4 % (2.0-8.0); NEUTROPHILS % 60.5 % (40.0-76.0); PLATELET 349 x1000/uL (130-400); RED BLOOD CELL COUNT 3.66 mill/uL (4.2-5.4); RED CELL DISTRIBUTION WIDTH 18.3 % (11.6-14.6)
[2019-06-13 08:00] VITALS: BP 109/68
[2019-06-13] MEDS: ASPIRIN 81MG EC TABLET PO SCH (08:26)
[2019-06-13] MEDS: APIXABAN 5 MG TABLET PO SCH ×2 (08:27→17:38)
[2019-06-13] MEDS: FUROSEMIDE 20MG TABLET PO SCH (08:27)
[2019-06-13] MEDS ORDERED: DIPHENHYDRAMINE 25MG CAPSULE PO SCH (10:15)
[2019-06-13 12:00] VITALS: BP 107/75
[2019-06-13] MEDS ORDERED: TOPUD PO (13:10)
[2019-06-13] MEDS ORDERED: ALD50 PO (13:14)
[2019-06-13] MEDS ORDERED: ASPI-1497 PO (13:15)
[2019-06-13] MEDS ORDERED: DIPHENHYDRAMINE 50MG/ML VIAL IV NR (14:45)
[2019-06-13 16:00] VITALS: BP 141/74
[2019-06-13 20:00] VITALS: BP 132/72
[2019-06-13 20:03] LABS: CREATINE KINASE 1122 IU/L (26-192)
[2019-06-13] MEDS: DIPHENHYDRAMINE 25MG CAPSULE PO PRN (20:13)
[2019-06-14] VITALS (7 sets, daily range): BP systolic 121–147; BP diastolic 63–90
[2019-06-14] MEDS: HYDROCODONE/ACETAMINOPHEN 5/325MG TABLET PO PRN (00:15)
[2019-06-14] MEDS: DIPHENHYDRAMINE 25MG CAPSULE PO PRN (02:29)
[2019-06-14 06:19] LABS: BASOPHILS % 0.5 % (0.0-2.0); EOSINOPHILS % 3.6 % (0.0-5.0); HEMATOCRIT. 34.4 % (36.0-48.0); LYMPHOCYTES % 17.6 % (20.0-50.0); MEAN CORPUSCULAR HEMOGLOBIN 27.3 pg (28.0-32.0); MEAN CORPUSCULAR VOLUME 85.4 fL (81.0-99.0); MEAN PLATELET VOLUME 7.5 fl (7.4-10.4); MONOCYTES % 8.8 % (2.0-8.0); NEUTROPHILS % 69.5 % (40.0-76.0); PLATELET 333 x1000/uL (130-400); RED BLOOD CELL COUNT 4.03 mill/uL (4.2-5.4); RED CELL DISTRIBUTION WIDTH 18.8 % (11.6-14.6)
[2019-06-14 06:46] LABS: PHOSPHORUS 4.4 mg/dL (2.5-4.9)
[2019-06-14] MEDS: HYDROCODONE/APAP 7.5/325MG 1 TAB TABLET PO PRN ×4 (06:55→22:37)
[2019-06-14] MEDS: APIXABAN 5 MG TABLET PO SCH ×2 (08:32→18:00)
[2019-06-14] MEDS: ASPIRIN 81MG EC TABLET PO SCH (08:32)
[2019-06-15] VITALS: BP 132/79
[2019-06-15 04:00] VITALS: BP 125/78
[2019-06-15 07:44] VITALS: BP 140/75
[2019-06-15] MEDS: APIXABAN 5 MG TABLET PO SCH (08:35)
[2019-06-15] MEDS: ASPIRIN 81MG EC TABLET PO SCH (08:35)
[2019-06-15 09:06] LABS: IMMUNOGLOBULIN A 731 mg/dL (87-352); IMMUNOGLOBULIN G 2762 mg/dL (700-1600); IMMUNOGLOBULIN M 96 mg/dL (26-217)
[2019-06-15] MEDS ORDERED: NIFEDIPINE 10MG CAPSULE ONE (10:17)
[2019-06-15 12:20] VITALS: BP 119/62
[2019-06-15] MEDS: HYDROCODONE/APAP 7.5/325MG 1 TAB TABLET PO PRN (12:20)
[2019-06-15 13:11] LABS: A/G RATIO 0.6 (0.7-1.7); ALBUMIN 3.2 g/dL (2.9-4.4); ALPHA-1-GLOBULIN 0.3 g/dL (0.0-0.4); BETA GLOBULIN 1.3 g/dL (0.7-1.3); GAMMA GLOBULINS 2.7 g/dL (0.4-1.8); GLOBULIN TOTAL 5.3 g/dL (2.2-3.9); M-SPIKE Not Observed g/dL (Not Observed); TOTAL PROTEIN SERUM 8.5 g/dL (6.0-8.5)
[2019-06-15 14:50] VITALS: BP 119/76
[2019-06-15 15:56] VITALS: BP 120/65
== END 2019-06-15 17:12 | disposition home health service (06) | DRG 683 ==
LOC: ER 02:58 → EDBEDREQ 08:35 → 6WST 09:55 → EDBEDREQ 10:03 → ENRESERV 10:12 → 6WST 11:56
PROVIDERS: ADMIT Internal Medicine; ATTEND Internal Medicine
DX: N17.9 Acute kidney failure, unspecified (principal); I13.0 Hypertensive heart and chronic kidney disease with heart failure and stage 1 through stage 4 chronic kidney disease, or unspecified chronic kidney disease; I50.32 Chronic diastolic (congestive) heart failure; M17.12 Unilateral primary osteoarthritis, left knee; I48.91 Unspecified atrial fibrillation; E78.5 Hyperlipidemia, unspecified; M17.0 Bilateral primary osteoarthritis of knee; N18.9 Chronic kidney disease, unspecified; I49.5 Sick sinus syndrome; Z95.0 Presence of cardiac pacemaker; D63.1 Anemia in chronic kidney disease; Z79.01 Long term (current) use of anticoagulants; Z79.899 Other long term (current) drug therapy; Z90.49 Acquired absence of other specified parts of digestive tract
CPT/HCPCS: 36415; 71045; 72170; 73552; 73562; 73590; 76770; 80048; 80053; 81003; 82550; 82784; 83735; 83880; 84100; 84155; 84165; 84484; 85025; 86334; 93005; 96374; 96375; 97112; 97116; 97162; 97166; 99291; J1200; J1940; J2270; J2405; J7030; Q0163

== ENCOUNTER 2019-06-26 02:42 | Emergency (ER) | payer MEDICARE, MEDICAID ==
[~2019-06-26] VITALS: Ht 177.8 cm; Wt 77.0 kg
[~2019-06-26 02:42] MED LIST: ALD50 PO; AMI2 PO; APIX5TAB MT; ASPI-1393 PO; ATOR20TA65 PO; DICL100G31 TP; DIGO125T82 PO; DILT180T11 PO; DOXE10CA2 PO; FURO20TA4 PO; ISOS30TA6 PO; LACT10SO30 PO; LEVO25TA2 PO; LISI-653 PO; METO100T16 PO; NITR0.4T49 SL; TOPUD PO; TORS100T11 PO
[2019-06-26] MEDS ORDERED: METHYLPREDNISOLONE SOD SUCC 125 MG/2 ML VIAL IV ONE (04:15)
[2019-06-26] MEDS ORDERED: FAMOTIDINE 20MG/2ML VIAL IV ONE (04:15)
[2019-06-26 04:48] LABS: CHLORIDE 113 mEq/L (98-107)
[2019-06-26 04:51] LABS: BASOPHILS % 0.4 % (0.0-2.0); EOSINOPHILS % 3.3 % (0.0-5.0); HEMATOCRIT. 31.4 % (36.0-48.0); MEAN CORPUSCULAR VOLUME 84.5 fL (81.0-99.0); MEAN PLATELET VOLUME 7.7 fl (7.4-10.4); MONOCYTES % 9.7 % (2.0-8.0); NEUTROPHILS % 68.6 % (40.0-76.0); PLATELET 221 x1000/uL (130-400); RED BLOOD CELL COUNT 3.72 mill/uL (4.2-5.4); RED CELL DISTRIBUTION WIDTH 18.7 % (11.6-14.6)
[2019-06-26] MEDS ORDERED: DIPHENHYDRAMINE 25MG CAPSULE PO ONE (06:00)
[2019-06-26 06:52] VITALS: BP 138/72
== END 2019-06-26 07:24 | disposition home or self-care (01) ==
LOC: ER 02:42
DX: T78.40XA Allergy, unspecified, initial encounter (principal); I11.0 Hypertensive heart disease with heart failure; I50.9 Heart failure, unspecified; E78.00 Pure hypercholesterolemia, unspecified; Z95.0 Presence of cardiac pacemaker; Z79.899 Other long term (current) drug therapy; Z79.82 Long term (current) use of aspirin
CPT/HCPCS: 36415; 80048; 85025; 96374; 96375; 99283; J2930; J3490; Q0163

== ENCOUNTER 2021-08-17 02:59 | Emergency (ER) | payer BC, MEDICAID ==
[~2021-08-17] VITALS: Ht 175.3 cm; Wt 82.0 kg
[~2021-08-17 02:59] MED LIST changes: -ALD50 PO; -ASPI-1393 PO; +ASPI-1497 PO; +BUME2TAB8 PO; +CARV12.545 PO; +DIGO125T80 PO; -DIGO125T82 PO; -DILT180T11 PO; -DOXE10CA2 PO; -FURO20TA4 PO; +HYDR-4001 MT; -ISOS30TA6 PO; -LACT10SO30 PO; -LEVO25TA2 PO; +LEVO50TA PO; -LISI-653 PO; +LISI10TA26 PO; +METO5TAB7 PO; +NIFE-33 PO; -NITR0.4T49 SL; +POTA10CA42 PO; +SPIR50TA5 PO; -TORS100T11 PO
[2021-08-17] MEDS ORDERED: MORPHINE SULFATE 10 MG/ML CPJ IM ONE (04:00)
[2021-08-17] MEDS ORDERED: ONDANSETRON 4MG ODT PO ONE (04:00)
[2021-08-17] MEDS ORDERED: HYDR-4001 MT (04:09)
[2021-08-17] MEDS ORDERED: TRAM100C3 PO (04:41)
[2021-08-17 05:55] VITALS: BP 158/73
== END 2021-08-17 05:58 | disposition home or self-care (01) ==
LOC: ER 03:10
DX: I70.232 Atherosclerosis of native arteries of right leg with ulceration of calf (principal); L97.219 Non-pressure chronic ulcer of right calf with unspecified severity; I11.0 Hypertensive heart disease with heart failure; I50.9 Heart failure, unspecified; I48.91 Unspecified atrial fibrillation; Z95.0 Presence of cardiac pacemaker; Z79.01 Long term (current) use of anticoagulants; Z79.899 Other long term (current) drug therapy
CPT/HCPCS: 96372; 99283; J2270; Q0162